=== PATIENT | female | born 1960 | race Caucasian/White ===

== ENCOUNTER → 2021-01-13 14:06 | Outpatient (REF) | payer OTHER, SELFPAY | LOC: ANHLAB 14:06 | PROVIDERS: PCP Internal Medicine; Visit Provider Nurse Practitioner | DX: C44.519 Basal cell carcinoma of skin of other part of trunk (principal) | CPT/HCPCS: 88305 ==

== ENCOUNTER → 2021-02-02 10:33 | Outpatient (REF) | payer OTHER, SELFPAY | LOC: ANHLAB 10:33 | PROVIDERS: PCP Internal Medicine; Visit Provider Nurse Practitioner | DX: D49.2 Neoplasm of unspecified behavior of bone, soft tissue, and skin (principal) | CPT/HCPCS: 88305; 88312 ==

== ENCOUNTER → 2021-02-09 08:44 | Outpatient (REF) | payer OTHER, SELFPAY | LOC: ANHLAB 08:44 | PROVIDERS: PCP Internal Medicine; Visit Provider Nurse Practitioner | DX: C44.519 Basal cell carcinoma of skin of other part of trunk (principal) | CPT/HCPCS: 88305; 88331 ==

== ENCOUNTER 2022-07-01 15:30 | Outpatient (NON) | payer BC, SELFPAY | END 2022-07-01 15:31 | disposition home or self-care (01) | LOC: ANHLAB 07-05 15:33 | PROVIDERS: PCP Internal Medicine; Visit Provider Nurse Practitioner | DX: C44.41 Basal cell carcinoma of skin of scalp and neck (principal) | CPT/HCPCS: 88305 ==

== ENCOUNTER 2022-08-09 17:26 | Outpatient (NON) | payer BC, SELFPAY | END 2022-08-09 17:27 | disposition home or self-care (01) | PROVIDERS: PCP Internal Medicine; Referring Provider Nurse Practitioner; Visit Provider Nurse Practitioner | DX: C44.319 Basal cell carcinoma of skin of other parts of face (principal) | CPT/HCPCS: 88305; 88331 ==

== ENCOUNTER 2023-04-29 02:27 | Day surgery (SDC) | payer BC, SELFPAY ==
[2023-04-18 15:56] VITALS: BMI 23.8
[2023-04-29 07:45] VITALS: BMI 23.8
[2023-04-29] MEDS: LACTATED RINGERS 1,000 ML 150 ML IV CONT (07:59)
--- NOTE | 2023-04-29 08:14 | P.PNAN_ITS ---
Anes - Initial Pre Proc Eval Procedure: Operation Date: 04/29/23 08:30 Proposed Procedures p Screening Colonoscopy - Ang Camejo MD Date/Time: 04/29/23 08:14 Surgeon: Ang Camejo MD Pre Op Diagnosis: neoplasm screening Patient Data Age: 62 Gender: F Height: 1.65 m Weight: 64.9 kg Allergies Allergy/AdvReac Type Severity Reaction Status Date / Time Sulfa (Sulfonamide Allergy Unknown Rash Verified 04/18/23 15:58 Antibiotics) Home Medications Medication Instructions Recorded Confirmed Type ascorbate calcium (vitamin C) 500 500 mg PO DAILY 02/17/23 04/18/23 History mg tablet cholecalciferol (vitamin D3) 50 50 mcg PO DAILY 02/17/23 04/18/23 History mcg (2,000 unit) capsule cyanocobalamin (vitamin B-12) 2,000 mcg PO DAILY 02/17/23 04/18/23 History 2,000 mcg tablet escitalopram oxalate 10 mg tablet 5 mg PO DAILY 04/18/23 04/18/23 History (Lexapro) Patient hx anesthesia problems: none Family hx anesthesia problems: none Results Review: All pre-operative results and documents have been reviewed as part of the pre- operative evaluation. COUNTS INCLUDE 234 BEDS AT THE [facility] Past Medical History Medical History (Updated 02/21/23 @ 16:03 by Gisselel Pacheco PA-C) [place] (actinic keratosis) Atypical nevus Breast cancer History of atypical nevus Osteopenia Skin cancer screening Skin neoplasm Surgical History Surgical History (Updated 02/17/23 @ 09:15 by Daphney Potts MA) H/O: hysterectomy History of mastectomy Hx of breast implants, bilateral Family History Family History Mother Breast cancer Sibling Breast cancer Social History Social History Smoking status: Never smoker Alcohol intake: current Drinks per week: 2 Substance use: never Substance use type: does not use Lack of Transportation: No Lack of Food: Never True Current Housing: I Have Housing Concerned About Future Housing: No Difficulty Paying Gas/Electric Bills: No Difficulty Paying for Meds: No Currently Unemployed: No Education: High School Diploma/GED Difficulty w/ Childcare or Family Care: No Living arrangements: with family Occupation/Education: occupation Gender identity (if verbalized by the patient): Female Sexual Orientation (if Verbalized by the Patient): Straight or Heterosexual Spiritual care concerns: No Anes - Eval Final PreProcedure Day of Procedure 04/29/23 08:14 Patient weight: normal Heart: regular rate and rhythm Lungs: clear to auscultation Airway: Mallampati scale class II Neurological: alert and oriented Last oral intake: >/= 8 hours ASA classification: II Emergent: no Anesthetic plan: proceed Anesthesia type and monitoring: general GIVS and standard monitoring Results Review: All pre-operative results and documents have been reviewed as part of the pre- operative evaluation. Informed Consent: The patient's anesthetic plan and its attendant risks and benefits were discussed with the patient/family/POA. Questions were solicited and answers provided to the satisfaction of the patient/family/POA.
--- NOTE | 2023-04-29 08:33 | P.HP_ITS ---
History of Present Illness History of Present Illness Consent: Risks, benefits, and alternatives have been discussed and questions answered. Patient agrees to proceed with procedure. Chief complaint: neoplasm screening Narrative: Ashly Rivera is a 62 year old female Presents for screening colonoscopy. Patient's current weight appetite and bowel movements are normal. Patient denies abdominal pain. She has had no bleeding. Family history is significant her daughter has ulcerative colitis. Patient reports previous colonoscopy elsewhere 5 years ago the results which are unknown. Review of Systems Review of Systems: Review of systems noncontributory. [facility] Past Medical History Medical History (Updated 02/21/23 @ 16:03 by Gisselle Pacheco PA-C) [place] (actinic keratosis) Atypical nevus Breast cancer History of atypical nevus Osteopenia Skin cancer screening Skin neoplasm Surgical History Surgical History (Updated 02/17/23 @ 09:15 by Daphney Potts MA) H/O: hysterectomy History of mastectomy Hx of breast implants, bilateral Family History Family History Mother Breast cancer Sibling Breast cancer Social History Social History Smoking status: Never smoker Alcohol intake: current Drinks per week: 2 Substance use: never Substance use type: does not use Lack of Transportation: No Lack of Food: Never True Current Housing: I Have Housing Concerned About Future Housing: No Difficulty Paying Gas/Electric Bills: No Difficulty Paying for Meds: No Currently Unemployed: No Education: High School Diploma/GED Difficulty w/ Childcare or Family Care: No Living arrangements: with family Occupation/Education: occupation Gender identity (if verbalized by the patient): Female Sexual Orientation (if Verbalized by the Patient): Straight or Heterosexual Spiritual care concerns: No Meds Home Medications and Allergies Home Medications Medication Instructions Recorded Confirmed Type ascorbate calcium (vitamin C) 500 500 mg PO DAILY 02/17/23 04/18/23 History mg tablet cholecalciferol (vitamin D3) 50 50 mcg PO DAILY 02/17/23 04/18/23 History mcg (2,000 unit) capsule cyanocobalamin (vitamin B-12) 2,000 mcg PO DAILY 02/17/23 04/18/23 History 2,000 mcg tablet escitalopram oxalate 10 mg tablet 5 mg PO DAILY 04/18/23 04/18/23 History (Lexapro) Allergies Allergy/AdvReac Type Severity Reaction Status Date / Time Sulfa (Sulfonamide Allergy Unknown Rash Verified 04/18/23 15:58 Antibiotics) Exam Narrative: Physical exam reveals patient to be alert. Vital signs stable. HEENT exam is unremarkable. Patient is anicteric. Lungs are clear to auscultation and percussion. Heart is without murmur or extra sounds. Abdomen bowel sounds are present soft nontender with no organomegaly. Digital external rectal exam is normal. Assessment and Plan Assessment and plan (1) Screening for colon cancer: Code(s): Z12.11 - Encounter for screening for malignant neoplasm of colon Status: Acute Assessment and Plan: Patient presents today for screening colonoscopy.
[2023-04-29 08:45] VITALS: BP 131/81; PULSE 81; RESP 18; TEMP 36.6; O2SAT 100
[2023-04-29] MEDS: SIMETHICONE ORAL SUSPENSION 20 MG/0.3 ML 30 ML BOTTLE 0.6 ML IRRIGATION (08:50)
[2023-04-29 09:04] VITALS: BP 95/57; PULSE 70; RESP 17; O2SAT 100
[2023-04-29 09:14] VITALS: BP 110/67; PULSE 66; RESP 19; O2SAT 100
[2023-04-29 09:24] VITALS: BP 112/68; PULSE 68; RESP 19; O2SAT 100
== END 2023-04-29 09:25 | disposition home or self-care (01) ==
PROVIDERS: PCP Physician Assistant Medical; Visit Provider Internal Medicine Gastroenterology
PROC: 0DJD8ZZ Inspection of Lower Intestinal Tract, Via Natural or Artificial Opening Endoscopic (ICD-10-PCS; CPT 45378; principal; 2023-04-29 08:30)
DX: Z12.11 Encounter for screening for malignant neoplasm of colon (principal); K64.8 Other hemorrhoids; Z85.3 Personal history of malignant neoplasm of breast
CPT/HCPCS: 45378; J2704; J7120